=== PATIENT | female | born 1970 | race Caucasian/White ===

== ENCOUNTER 2020-05-04 11:25 | Emergency (ER) | payer MEDICAID ==
[~2020-05-04] VITALS: Ht 170.2 cm; Wt 85.0 kg
[2020-05-04 11:29] VITALS: BP 166/86
[2020-05-04 12:21] LABS: BASOPHILS # (AUTO) 0.06 x10^3/uL (0-0.1); BASOPHILS % (AUTO) 1 % (0-1); EOSINOPHILS % (AUTO) 2 % (1-7); LYMPHOCYTES # (AUTO) 2.01 x10^3/uL (1-3.4); LYMPHOCYTES % (AUTO) 23 % (22-44); MD NO; MEAN CORPUSCULAR HEMOGLOBIN 27.4 pg (27.0-34.8); MEAN CORPUSCULAR HGB CONC 32.6 g/dL (32.4-35.8); MEAN PLATELET VOLUME 8.5 fL (7.4-10.4); MONOCYTES % (AUTO) 6 % (2-9); NEUTROPHILS # (AUTO) 6.04 x10^3/uL (1.8-6.8); NEUTROPHILS % (AUTO) 69 % (42-75); PLATELET COUNT 351 x10^3/uL (130-400); RED BLOOD COUNT 5.09 x10^6/uL (3.82-5.3); RED CELL DISTRIBUTION WIDTH 14.8 % (9.6-15.2)
[2020-05-04 12:42] LABS: ANION GAP 5 mmol/L (5-15); CALCIUM 8.9 mg/dL (8.5-10.1); CHLORIDE 106 mmol/L (98-107); CREATININE 0.86 mg/dL (0.55-1.02)
== END 2020-05-04 13:24 | disposition home or self-care (01) ==
LOC: ED 13:09
DX: S30.1XXA Contusion of abdominal wall, initial encounter (principal); I10 Essential (primary) hypertension; Z76.0 Encounter for issue of repeat prescription; X58.XXXA Exposure to other specified factors, initial encounter; Y93.89 Activity, other specified; Y92.89 Other specified places as the place of occurrence of the external cause; Y99.8 Other external cause status
CPT/HCPCS: 36415; 80048; 85025; 99283

== ENCOUNTER 2021-02-11 11:11 | Emergency (ER) | payer OTHER, MEDICAID ==
[~2021-02-11] VITALS: Ht 170.2 cm; Wt 92.4 kg
--- NOTE | 2021-02-11 12:56 | NUR ---
[facility] PROGRAM COORDINATOR: CALLED FOR ROOM, NO ANSWER
--- NOTE | 2021-02-11 13:00 | NUR ---
PUBLISHING SPECIALIST: PT TO ROOM FROM SARAN KHAN
[2021-02-11 13:02] LABS: BASOPHILS % (AUTO) 1 % (0-1); EOSINOPHILS % (AUTO) 2 % (1-7); LYMPHOCYTES % (AUTO) 29 % (22-44); MEAN CORPUSCULAR HEMOGLOBIN 27.8 pg (27.0-34.8); MEAN CORPUSCULAR HGB CONC 32.5 g/dL (32.4-35.8); MONOCYTES % (AUTO) 6 % (2-9); NEUTROPHILS % (AUTO) 63 % (42-75); PLATELET COUNT 368 x10^3/uL (130-400); RED BLOOD COUNT 4.81 x10^6/uL (3.82-5.3); RED CELL DISTRIBUTION WIDTH 14.4 % (9.6-15.2)
[2021-02-11 13:04] LABS: MD NO
[2021-02-11 13:14] LABS: ALBUMIN 3.9 g/dL (3.4-5.0); ANION GAP 5 mmol/L (5-15); CALCIUM 9.4 mg/dL (8.5-10.1); CHLORIDE 102 mmol/L (98-107)
[2021-02-11 13:18] LABS: ALANINE AMINOTRANSFERASE 49 U/L (12-78); ALKALINE PHOSPHATASE 85 U/L (45-117); BILIRUBIN,TOTAL 0.2 mg/dL (0.2-1.0); CREATININE 0.89 mg/dL (0.55-1.02); TOTAL PROTEIN 8.2 g/dL (6.4-8.2)
--- NOTE | 2021-02-11 13:26 | NUR ---
Pt states "my kidney's hurt, like burning." Denies all other urinary s/sx. Pt states hx of HTN and family hx of DM. Connected to BP and O2 monitors, VSS. Educated about need for UA.
[2021-02-11 14:02] VITALS: BP 123/77
[2021-02-11 14:38] LABS: MICROSCOPIC AUTO
[2021-02-11] MEDS ORDERED: ACETAMINOPHEN 500 MG TABLET ONE (14:49)
[2021-02-11] MEDS ORDERED: METHOCARBAMOL 750 MG TABLET ONE (14:49)
[2021-02-11] MEDS ORDERED: ACETAMINOPHEN 500 MG TABLET PO ONE (15:00)
[2021-02-11] MEDS ORDERED: METHOCARBAMOL 750 MG TABLET PO ONE (15:00)
--- NOTE | 2021-02-11 15:02 | NUR ---
REC'D REPORT FROM VENUS BARRIOS RESTING IN BED.
[2021-02-11] MEDS ORDERED: KETOROLAC 30 MG/1 ML ONE (15:55)
[2021-02-11] MEDS ORDERED: KETOROLAC 30 MG/1 ML IM ONE (16:00)
== END 2021-02-11 16:05 | disposition home or self-care (01) ==
LOC: ED 14:53
DX: M54.5 Low back pain (principal); I10 Essential (primary) hypertension; Z88.2 Allergy status to sulfonamides; Z79.899 Other long term (current) drug therapy
CPT/HCPCS: 36415; 80053; 81001; 85025; 96372; 99283; J1885